=== PATIENT | female | born 1940 | race Caucasian/White ===

== ENCOUNTER 2018-04-17 13:37 | Emergency (ER) | payer MEDICARE, SELFPAY ==
[2018-04-17 14:04] VITALS: PULSE 96; RESP 22; O2SAT 99
== END 2018-04-17 18:35 | disposition left against medical advice (07) ==
PROVIDERS: Emergency Provider Emergency Medicine; PCP Family Medicine
DX: R10.9 Unspecified abdominal pain (principal)
CPT/HCPCS: 99281

== ENCOUNTER 2018-04-18 09:31 | Observation (INO) | payer MEDICARE, SELFPAY ==
[2018-04-18] VITALS (14 sets, daily range): BP systolic 100–132; BP diastolic 41–58; PULSE 81–96; RESP 14–26; TEMP 36.4–36.9; O2SAT 93–100; BMI 39.6
--- NOTE | 2018-04-18 09:55 | ED.CHESTPAIN ---
HPI - Chest Pain General Chief Complaint: Chest Pain Stated Complaint: Abdominal Pain Time Seen by Provider: 04/18/18 09:46 Source: patient and EMS Mode of arrival: EMS Limitations: no limitations History of Present Illness HPI narrative: Patient is a 77-year-old female who presents with generalized weakness and chest pain. She said that she has been having chest pain off and on for the past couple of weeks this morning it was worse more on the right side. She is having some epigastric and right upper quadrant pain as well. She overall feels weak and tired. She is a COPD patient on chronic O2. She is noting that she needing a little bit more lately. She denies any bloody bowel movements dizziness lightheadedness heart palpitations. She has some shortness of breath with exertion. MD complaint: chest pain Onset (ago): month(s) Duration: constant Related Data Home Medications Medication Instructions Recorded Confirmed aspirin 81 mg PO DAILY 04/18/18 04/18/18 atorvastatin 80 mg PO DAILY 04/18/18 04/18/18 ferrous sulfate 325 mg PO DAILY 04/18/18 04/18/18 gabapentin 300 mg PO BEDTIME 04/18/18 04/18/18 glimepiride 2 mg PO QAM 04/18/18 04/18/18 metoprolol succinate 25 mg PO DAILY 04/18/18 04/18/18 ranitidine HCl 150 mg PO DAILY 04/18/18 04/18/18 risperidone 2 mg PO BEDTIME 04/18/18 04/18/18 ticagrelor 90 mg PO BID 04/18/18 04/18/18 Allergies Allergy/AdvReac Type Severity Reaction Status Date / Time No Known Drug Allergies Allergy Verified 04/17/18 14:04 Review of Systems Review of Systems All systems reviewed & are unremarkable except as noted in HPI and below Constitutional Denies chills, Reports fatigue, Denies fever(s), Denies frequent falls and Denies increased appetite ENT Ears, Nose, Mouth, and Throat: Denies change in voice, Denies dizziness, Denies neck pain and Denies sore throat Cardiovascular Reports chest pain, Denies irregular heart rhythm, Denies lightheadedness, Denies palpitations and Denies orthopnea Respiratory Reports as per HPI Gastrointestinal Gastrointestinal: Denies abdominal pain, Denies change in bowel habits, Denies diarrhea, Denies nausea and Denies vomiting Musculoskeletal Denies back pain, Denies neck pain and Denies numbness Integumentary/Breasts Denies pruritus, Denies erythema, Denies rash and Denies wounds Neurologic Denies behavioral changes, Denies confusion, Denies dizziness, Denies frequent falls and Denies numbness Psychiatric Denies behavioral changes and Denies confusion Endocrine Reports fatigue and Denies palpitations Hematologic/Lymphatic Denies easy bleeding and Denies easy bruising FOR[facility] Medical History COPD (chronic obstructive pulmonary disease) (Acute) Chronic respiratory failure (Acute) Social History household members: spouse Smoking Status: Former smoker alcohol intake: current Exam Initial Vital Signs Initial Vital Signs: Vital Signs Temperature 97.6 F 04/18/18 09:41 Pulse Rate 95 H 04/18/18 09:41 Respiratory Rate 26 H 04/18/18 09:41 Blood Pressure 127/53 L 04/18/18 09:41 Pulse Oximetry 100 04/18/18 09:41 GENERAL: Overweight elderly woman in no acute distress appears slightly pale HEENT: Head atraumatic,EOMI, pupils reactive, face symmetric, neck is supple no meningeal sign CARDIOVASCULAR: Regular rate and rhythm without murmurs, rubs or gallops. RESPIRATORY: Breath sounds equal bilaterally, no wheezes rales or rhonchi. ABDOMEN: Soft, slightly distended with right upper quadrant and epigastric discomfort RECTAL: Hemoccult her sleep positive after 2 min no gross blood : No CVA tenderness EXTREMITIES: Normal range of motion, no clubbing or edema. Neurovascularly intact NEUROLOGICAL: Alert and oriented x4.Normal gait and speech. Cranial nerves II through XII grossly intact. Doctor Chiropractic strength equal bilaterally SKIN: Warm, dry, no laceration, no petechiae, no rashes or lesions. Course Orders Ordered: ED Orders 04/18/18 09:36 Complete Blood Count AUTO DIFF Stat Comprehensive Metabolic Panel Stat Lipase Stat Partial Thromboplastin Time Stat Prothrombin Time INR Stat Troponin & CK Cardiac Panel Stat 04/18/18 09:56 CT abdomen pelvis w con Stat XR chest 1V Stat Ferritin Stat Iron Profile (w/ % Saturation) Stat Packed Cells Stat Reticulocyte Count, Percent Stat Type and Screen Stat Aspirin (Aspirin Chew) 81 mg PO DAILY AMYA Atorvastatin Calcium (Lipitor) 80 mg PO DAILY MAYA Ferrous Sulfate (Ferrous Sulfate) 325 mg PO DAILY [facility] Gabapentin (Neurontin) 300 mg PO BEDTIME MAYA Glimepiride (Amaryl) 2 mg PO DAILY MAYA Sodium Chloride (Normal Saline 0.9%) 1,000 mls @ 150 mls/hr IV CONT MAYA Last Infusion: 04/18/18 12:45 Dose: 0 mls/hr Admin: 04/18/18 10:19 Dose: 150 mls/hr Iron Sucrose 200 mg/ Sodium (Chloride) 110 mls @ 220 mls/hr IV PROTOCOL ONE Stop: 04/19/18 18:18 Metoprolol Succinate (Toprol Xl) 25 mg PO DAILY [facility] Non-Formulary Medication (Ticagrelor [Ticagrelor]) 90 mg PO BID MAYA Risperidone (Risperdal) 2 mg PO BEDTIME MAYA Discontinued Medications Aspirin (Aspirin Chew) 324 mg PO NOW ONE Stop: 04/18/18 09:57 Last Admin: 04/18/18 10:18 Dose: 324 mg Vital Signs - 8 hr 04/18/18 11:16 04/18/18 12:17 04/18/18 12:42 Temperature Pulse Rate 92 H 96 H 85 Respiratory Rate 19 14 25 H Blood Pressure 112/54 L Blood Pressure [Right Arm] 110/57 L 100/48 L Pulse Oximetry 99 96 99 04/18/18 13:00 04/18/18 14:17 04/18/18 14:36 Temperature 97.9 F 98.0 F 98.4 F Pulse Rate 95 H 82 96 H Respiratory Rate 20 22 20 Blood Pressure 120/52 L 132/56 L 110/52 L Blood Pressure [Right Arm] Pulse Oximetry 99 04/18/18 16:59 04/18/18 17:00 04/18/18 17:16 Temperature 98.2 F 98.2 F 98.3 F Pulse Rate 82 82 84 Respiratory Rate 16 16 16 Blood Pressure 101/49 L 101/49 L 118/50 L Blood Pressure [Right Arm] Pulse Oximetry 100 MDM - Chest Pain Lab Data Attestation: I reviewed the patient's lab results. Result diagrams: 04/18/18 09:36 04/18/18 09:36 Lab Results 04/18/18 04/18/18 04/18/18 Range/Units 09:36 09:36 09:36 WBC 5.6 (4.5-11.0) X10^3/uL RBC 2.56 L (4.0-5.2) X10^6/uL Hgb 5.5 L* (12.0-16.0) g/dL Hct 18.2 L* (36-46) % MCV 70.0 L (80-100) fL MCH 21.3 L (26-34) PG MCHC 30.5 (30-36) % RDW 21.5 H (11.6-14.8) % Plt Count 194 (150-400) X10^3/uL Neut % (Auto) 60.1 (50-75) % Lymph % (Auto) 25.6 (25-40) % [place] % (Auto) 10.3 (3-14) % Eos % (Auto) 3.3 (2-4) % Baso % (Auto) 0.7 (0-2) % Neut # (Auto) 3400 (5236-0490) /uL RBC Morphology Not Reportable Polychromasia 1+ H Hypochromasia 3+ H Anisocytosis 3+ H Microcytosis 3+ H PT 10.9 (10.1-12.7) SECONDS INR 1.0 (0.9-1.3) APTT 27 (26.4-36.2) SECONDS Sodium 143 (137-145) mmol/L Potassium 4.2 (3.4-5.1) mmol/L Chloride 103 (98-107) mmol/L Carbon Dioxide 32 (22-32) mmol/L BUN 15 (7-17) mg/dL Creatinine 0.80 (0.52-1.04) mg/dL Estimated GFR > 60.0 (>60) mL/min BUN/Creatinine Ratio 18.8 (6-22) Glucose 220 H (80-110) mg/dL Calcium 8.5 (8.4-10.2) mg/dL Total Bilirubin 0.8 (0.2-1.3) mg/dL AST 18 (14-36) IU/L ALT 24 (9-52) IU/L Alkaline Phosphatase 80 (38-126) U/L Total Creatine Kinase 33 (30-135) U/L Troponin I 0.066 H (0.01-0.034) ng/mL Total Protein 6.2 L (6.3-8.2) g/dL Albumin 3.5 (3.5-5.0) g/dL Globulin 2.7 (1.7-4.1) g/dL Albumin/Globulin Ratio 1.3 (1.0-2.8) Lipase 207 (23-300) U/L Blood Type Antibody Screen Crossmatch 04/18/18 Range/Units 09:56 WBC (4.5-11.0) X10^3/uL RBC (4.0-5.2) X10^6/uL Hgb (12.0-16.0) g/dL Hct (36-46) % MCV (80-100) fL MCH (26-34) PG MCHC (30-36) % RDW (11.6-14.8) % Plt Count (150-400) X10^3/uL Neut % (Auto) (50-75) % Lymph % (Auto) (25-40) % [place] % (Auto) (3-14) % Eos % (Auto) (2-4) % Baso % (Auto) (0-2) % Neut # (Auto) (9130-6631) /uL RBC Morphology Polychromasia Hypochromasia Anisocytosis Microcytosis PT (10.1-12.7) SECONDS INR (0.9-1.3) APTT (26.4-36.2) SECONDS Sodium (137-145) mmol/L Potassium (3.4-5.1) mmol/L Chloride (98-107) mmol/L Carbon Dioxide (22-32) mmol/L BUN (7-17) mg/dL Creatinine (0.52-1.04) mg/dL Estimated GFR (>60) mL/min BUN/Creatinine Ratio (6-22) Glucose (80-110) mg/dL Calcium (8.4-10.2) mg/dL Total Bilirubin (0.2-1.3) mg/dL AST (14-36) IU/L ALT (9-52) IU/L Alkaline Phosphatase (38-126) U/L Total Creatine Kinase (30-135) U/L Troponin I (0.01-0.034) ng/mL Total Protein (6.3-8.2) g/dL Albumin (3.5-5.0) g/dL Globulin (1.7-4.1) g/dL Albumin/Globulin Ratio (1.0-2.8) Lipase (23-300) U/L Blood Type O Positive Antibody Screen Negative Crossmatch See Detail Imaging Data CT scan - abdomen: Radiologist's impression: [address] [address] [address] Scan Report Signed Patient: AARON STILL MR#: [id number] : 1940 Acct:[id number] Age/Sex: 77 / F Date of Service: 04/18/18 Loc: ED Accession Number: [id number] Procedure: CT abdomen pelvis w con Ordering Provider: Lisa Nielson D.O. PROCEDURE: CT ABDOMEN PELVIS W CON INDICATIONS: RUQ epigastric pain ab bloating TECHNIQUE: After the administration of intravenous contrast, 5 mm thick sections acquired from the diaphragm to the symphysis. 5 mm coronal and sagittal reformats were acquired. For radiation dose reduction, the following was used: automated exposure control, adjustment of mA and/or kV according to patient size. COMPARISON: None. FINDINGS: Image quality: Excellent. ABDOMEN: Lung bases: Lung bases are clear. Heart size is normal. Solid organs: Liver is normal in size and enhancement. Gallbladder is surgically absent. There is trace intrahepatic biliary ductal dilatation which may be secondary to cholecystectomy. Pancreas enhances normally. Spleen is normal in size and enhancement. No adrenal nodules. Kidneys demonstrate normal size and enhancement, without hydronephrosis. There are bilateral low density renal cortical cystic lesions. There are multiple nonobstructing bilateral renal calculi, the largest of which measures 3-4 mm in diameter. No hydroureter or ureterolithiasis. Peritoneum and bowel: Bowel loops demonstrate normal wall thickness and caliber. The appendix is thin walled. No free fluid or air. Nodes and vessels: No retroperitoneal or mesenteric adenopathy by size criteria. Aorta and inferior vena cava are normal in size. There are scattered atheromatous calcifications throughout the aorta and iliac arteries bilaterally. Miscellaneous: No ventral hernias. PELVIS: Genitourinary: Bladder wall thickness is normal. The uterus is nonvisualized and may be surgically absent. Miscellaneous: No inguinal hernias or adenopathy. Bones: No suspicious bony lesions. No vertebral body compression fractures. IMPRESSION: 1. No acute intra-abdominal findings. Normal appendix. 2. Nonobstructing bilateral nephrolithiasis. No hydronephrosis, hydroureter, or ureterolithiasis. Dictated by: Marlene Arora M.D. on 04/18/2018 at 11:18 Approved by: Marlene Arora M.D. on 04/18/2018 at 11:22 Chest x-ray: Radiologist's impression: PROCEDURE: XR CHEST 1V INDICATIONS: chest pain TECHNIQUE: One view of the chest was acquired. COMPARISON: None. FINDINGS: Surgical changes and devices: None. Lungs and pleura: No pleural effusions or pneumothorax. Lungs are clear. Mediastinum: Mediastinal contours appear normal. Heart size is normal. Bones and chest wall: No suspicious bony lesions. Overlying soft tissues appear unremarkable. IMPRESSION: No acute cardiopulmonary findings. ECG Data Attestation: I personally reviewed and interpreted this ECG as follows: Prior ECG tracings: not available for review Interpretation: Sinus rhythm do not agree with computer rate [address] changes PVC noted MDM Narrative Medical decision making narrative: Patient is noted to be anemic significantly. She denies any active rectal bleeding. No prior history of bleeding. She is actually kind of a poor historian. I have called and spoken with Dr. Correia who has accepted patient to observation for blood transfusion and further workup. She at this time remains hemodynamically stable and is likely chronic Discharge Plan Departure Patient Disposition: Admitted as Observation Clinical Impression: Anemia Discharge Date/Time: 04/18/18 12:49 Interventions: ED Discharge Assessment Last Done: 04/18/18 12:42 Admit Date/Time: 04/18/18 12:37 Admit Provider: Colin Correia
--- NOTE | 2018-04-18 09:56 | DI.RAD.S_ITS ---
PROCEDURE: XR CHEST 1V INDICATIONS: chest pain TECHNIQUE: One view of the chest was acquired. COMPARISON: None. FINDINGS: Surgical changes and devices: None. Lungs and pleura: No pleural effusions or pneumothorax. Lungs are clear. Mediastinum: Mediastinal contours appear normal. Heart size is normal. Bones and chest wall: No suspicious bony lesions. Overlying soft tissues appear unremarkable. IMPRESSION: No acute cardiopulmonary findings. Dictated by: Marlene Arora M.D. on 04/18/2018 at 10:09 Approved by: Marlene Arora M.D. on 04/18/2018 at 10:09
[2018-04-18 10:10] LABS: Prothrombin Time 10.9 SECONDS (10.1-12.7)
[2018-04-18 10:13] LABS: PTT Partial Thromboplastin Tim 27 SECONDS (26.4-36.2)
[2018-04-18 10:14] LABS: Add Manual Diff / Slide Review NO; Basophils Percent Auto 0.7 % (0-2); Eosinophils Percent Auto 3.3 % (2-4); Lymphocytes Percent Auto 25.6 % (25-40); Mean Corpuscular HGB Conc 30.5 % (30-36); Mean Corpuscular Hemoglobin 21.3 PG (26-34); Monocytes Percent Auto 10.3 % (3-14); Neutrophils Absolute Auto 3400 /uL (3000-5900); Neutrophils Percent Auto 60.1 % (50-75); Platelet Count 194 X10^3/uL (150-400); Red Blood Cell Count 2.56 X10^6/uL (4.0-5.2); Red Cell Distribution Width 21.5 % (11.6-14.8); White Blood Cell Count 5.6 X10^3/uL (4.5-11.0)
[2018-04-18 10:15] LABS: Alanine Aminotransferase 24 IU/L (9-52); Albumin 3.5 g/dL (3.5-5.0); Albumin Globulin Ratio 1.3 (1.0-2.8); Alkaline Phosphatase 80 U/L (38-126); Aspartate Aminotransferase 18 IU/L (14-36); BUN Creatinine Ratio 18.8 (6-22); Bilirubin Total 0.8 mg/dL (0.2-1.3); Blood Urea Nitrogen 15 mg/dL (7-17); Calcium 8.5 mg/dL (8.4-10.2); Carbon Dioxide 32 mmol/L (22-32); Chloride 103 mmol/L (98-107); Creatine Kinase 33 U/L (30-135); Estimated Glomerular Filt Rate > 60.0 mL/min (>60); Globulin 2.7 g/dL (1.7-4.1); Glucose 220 mg/dL (80-110); HEMOLYSIS < 15 (0-50); Hemoglobin 5.5 g/dL (12.0-16.0); Lipase 207 U/L (23-300); Potassium 4.2 mmol/L (3.4-5.1); Sodium 143 mmol/L (137-145); Total Protein 6.2 g/dL (6.3-8.2)
[2018-04-18 10:16] LABS: Hematocrit 18.2 % (36-46)
[2018-04-18] MEDS: ASPIRIN 81 MG TAB 324 MG PO (10:18)
[2018-04-18] MEDS: SODIUM CHLORIDE 0.9% 1,000 ML 150 ML IV (10:19)
[2018-04-18 10:26] LABS: Troponin I 0.066 ng/mL (0.01-0.034)
[2018-04-18 10:58] LABS: Anisocytosis 3+; Hypochromasia 3+; Polychromasia 1+
[2018-04-18 10:59] LABS: Microcytosis 3+
--- NOTE | 2018-04-18 15:42 | PC.NURSE ---
Patient arrived to unit from ER at 1300, oriented to room and call light. 1st unit of PRBC's infusing as ordered, patient tolerating well. Waiting for Dr. Correia to come and see patient. Keeping NPO at this time, using bedpan for safety. Call light within reach, bed alarm on for safety. at bedside.
[2018-04-18 18:28] LABS: HEMOLYSIS < 15 (0-50); Iron 14 ug/dL (37-170)
[2018-04-18 18:39] LABS: Percent Iron Saturation 3 % (15-50); Total Iron Binding Capacity 439 ug/dL (265-497); Transferrin 346 mg/dL (206-381)
--- NOTE | 2018-04-18 18:47 | P.HP_ITS ---
History of Present Illness Date Patient Seen: 04/18/18 Time Patient Seen: 18:45 Chief complaint: Abdominal Pain Narrative: A very pleasant 77 years of age female presents to the ER complaint of of a midsternal chest pain. Patient notes she has been having this intermittent pain for about 1-2 months. It does not appear to be related to activity. No particular alleviating or exacerbating factor noted. Severity of the pain is only mild severity of 3 to 4/10 at worst. No previous similar symptom prior to the past 1-2 months. 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 2017 Borderline diabetes Morbid obesity Pertinent negatives as follow: No history of hypertension hyperlipidemia TIA or CVA cancer Family & Social History Social History: household members spouse Prior Living Arrangements House Safety & Behavioral: Feels Safe in Current Yes Environment Been Physically Hurt or No Threatened By a Person Suicidal Ideation Description None Tobacco & Substance use: Smoking Status Former smoker alcohol intake current alcohol intake frequency holiday/special occasion Substance Use Type does not use Comment: SOCIAL HISTORY Patient lives with her son and family Patient is a nonsmoker infrequent alcohol consumer SURGICAL HISTORY Patient notes the 3 stents placed in the coronary vessels last year Remote history of hysterectomy and back surgery FAMILY HISTORY Father with cancer with unknown primary Meds Home Medications Medication Instructions Recorded Confirmed Type aspirin 81 mg PO DAILY 04/18/18 04/18/18 History atorvastatin 80 mg PO DAILY 04/18/18 04/18/18 History ferrous sulfate 325 mg PO DAILY 04/18/18 04/18/18 History gabapentin 300 mg PO BEDTIME 04/18/18 04/18/18 History glimepiride 2 mg PO QAM 04/18/18 04/18/18 History metoprolol succinate 25 mg PO DAILY 04/18/18 04/18/18 History ranitidine HCl 150 mg PO DAILY 04/18/18 04/18/18 History risperidone 2 mg PO BEDTIME 04/18/18 04/18/18 History ticagrelor 90 mg PO BID 04/18/18 04/18/18 History Allergies Allergy/AdvReac Type Severity Reaction Status Date / Time No Known Drug Allergies Allergy Verified 04/17/18 14:04 Review of Systems Review of Systems A 10 point system reviewed with patient and was negative except for the symptoms as described. Patient with this midsternal chest pain discomfort. No associated diaphoresis no nausea no radiation of this discomfort to the jaw or the shoulder the back Exam Vital Signs (past 8 hours): - 04/18/18 11:16 04/18/18 12:17 04/18/18 12:42 Temperature Pulse Rate 92 H 96 H 85 Respiratory Rate 19 14 25 H Blood Pressure 112/54 L Blood Pressure [Right Arm] 110/57 L 100/48 L Pulse Oximetry 99 96 99 04/18/18 13:00 04/18/18 14:17 04/18/18 14:36 Temperature 97.9 F 98.0 F 98.4 F Pulse Rate 95 H 82 96 H Respiratory Rate 20 22 20 Blood Pressure 120/52 L 132/56 L 110/52 L Blood Pressure [Right Arm] Pulse Oximetry 99 04/18/18 16:59 04/18/18 17:00 04/18/18 17:16 Temperature 98.2 F 98.2 F 98.3 F Pulse Rate 82 82 84 Respiratory Rate 16 16 16 Blood Pressure 101/49 L 101/49 L 118/50 L Blood Pressure [Right Arm] Pulse Oximetry 100 Oxygen Delivery Method Nasal Cannula Oxygen Flow Rate 1.5 Narrative Exam Narrative: General appearance patient is awake and alert with good hygiene no apparent distress Psychiatric well oriented to time place and person mood is pleasant cooperative affect is appropriate Skin no rashes or lesions nonjaundiced turgor normal Eyes pupils are equal round and reactive to light The ears nose throat hearing grossly intact nose septum to midline no bleeding no oropharyngeal lesions noted Respiratory clear to auscultation with no wheezes no crackles good airflow Cardiovascular regular in rate and rhythm no murmur rubs or gallops PMI nondisplaced pulses +3 to extremities Chest reproducible chest wall tenderness of the same quality and location as the chest pain she has been complaining of over the past 1-2 months Gastrointestinal no epigastric tenderness no tenderness to palpation to any other region of abdomen positive bowel sounds are noted no organomegaly noted Lymphatic system no lymphadenopathy to neck or axilla Musculoskeletal strength is 5/5 clubbing noted range of motion appears normal Neurologic no focal neurologic changes cranial nerves 2-12 grossly intact proprioception intact Objective Labs Result Diagrams: 04/18/18 09:36 04/18/18 09:36 Labs: Laboratory Results - last 24 hr 04/18/18 04/18/18 04/18/18 09:36 09:36 09:36 WBC 5.6 RBC 2.56 L Hgb 5.5 L* Hct 18.2 L* MCV 70.0 L MCH 21.3 L MCHC 30.5 RDW 21.5 H Plt Count 194 Neut % (Auto) 60.1 Lymph % (Auto) 25.6 [place] % (Auto) 10.3 Eos % (Auto) 3.3 Baso % (Auto) 0.7 Neut # (Auto) 3400 RBC Morphology Not Reportable Polychromasia 1+ H Hypochromasia 3+ H Anisocytosis 3+ H Microcytosis 3+ H PT 10.9 INR 1.0 APTT 27 Sodium 143 Potassium 4.2 Chloride 103 Carbon Dioxide 32 BUN 15 Creatinine 0.80 Estimated GFR > 60.0 BUN/Creatinine Ratio 18.8 Glucose 220 H Calcium 8.5 Iron Total Bilirubin 0.8 AST 18 ALT 24 Alkaline Phosphatase 80 Total Creatine Kinase 33 Troponin I 0.066 H Total Protein 6.2 L Albumin 3.5 Globulin 2.7 Albumin/Globulin Ratio 1.3 Lipase 207 Blood Type Antibody Screen Crossmatch 04/18/18 04/18/18 09:56 09:56 WBC RBC Hgb Hct MCV MCH MCHC RDW Plt Count Neut % (Auto) Lymph % (Auto) [place] % (Auto) Eos % (Auto) Baso % (Auto) Neut # (Auto) RBC Morphology Polychromasia Hypochromasia Anisocytosis Microcytosis PT INR APTT Sodium Potassium Chloride Carbon Dioxide BUN Creatinine Estimated GFR BUN/Creatinine Ratio Glucose Calcium Iron 14 L Total Bilirubin AST ALT Alkaline Phosphatase Total Creatine Kinase Troponin I Total Protein Albumin Globulin Albumin/Globulin Ratio Lipase Blood Type O Positive Antibody Screen Negative Crossmatch See Detail Assessment & Plan Plan: Assessment/Plan Narrative: 1. Microcytic anemia Patient with a hemoglobin noted on admission of 5.5 with a low MCV. 2 units of packed RBC blood transfusion underway as ordered by ER physician I have requested for iron studies which include ferritin TIBC and iron level and reticulocyte count to be added to blood work before blood transfusion Along with a low serum iron, If the ferritin is low or the TIBC is greater than 400 the patient has an iron deficiency anemia. If iron deficiency anemia noted will continue with venofer 200 mg IV daily Repeat labs in a.m. 2. Borderline diabetes ADA diet insulin sliding scale as needed hemoglobin A1c pending 3. History of atherosclerotic heart disease with stent placement 2017 Continue cardiac meds except the aspirin and the Brilinta 4. Chest pain On examination patient is noted with focal tenderness in the xiphoid process to palpation. Patient notes this is exactly the pain and quality that she has been experiencing. I reassured the patient that this is not a cardiac related chest pain. This is more specifically a chest wall tenderness. Will trial with tramadol this evening. Time Spent With Patient Time with patient: 25 - 35 minutes (55 min)
[2018-04-18] MEDS: IRON SUCROSE 200 MG in SODIUM CHLORIDE 0.9% 100 ML 220 ML IV (20:05)
[2018-04-18 20:12] LABS: Hemoglobin A1C% w Est Avg Glu 6.5 % (4.0-6.0)
[2018-04-18] MEDS: SENNOSIDES 8.6 MG TABLET 17.2 MG PO (21:32)
[2018-04-18] MEDS: risperiDONE 1 MG TABLET 2 MG PO (21:32)
[2018-04-18] MEDS: DOCUSATE 100 MG CAPSULE PO (21:32)
[2018-04-18] MEDS: GABAPENTIN 300 MG CAPSULE PO (21:32)
[2018-04-19] VITALS (7 sets, daily range): BP systolic 109–140; BP diastolic 45–57; PULSE 78–97; RESP 15–21; TEMP 36.4–36.7; O2SAT 94–98
[2018-04-19] MEDS: SODIUM CHLORIDE 0.9% 1,000 ML 150 ML IV ×2 (03:33→09:04)
[2018-04-19 05:52] LABS: Add Manual Diff / Slide Review NO; Eosinophils Percent Auto 4.1 % (2-4); Hematocrit 24.1 % (36-46); Hemoglobin 7.7 g/dL (12.0-16.0); Lymphocytes Percent Auto 22.9 % (25-40); Mean Corpuscular HGB Conc 32.1 % (30-36); Mean Corpuscular Hemoglobin 24.1 PG (26-34); Mean Corpuscular Volume 75.1 fL (80-100); Monocytes Percent Auto 11.8 % (3-14); Neutrophils Absolute Auto 4100 /uL (3000-5900); Neutrophils Percent Auto 60.2 % (50-75); Platelet Count 175 X10^3/uL (150-400); Red Blood Cell Count 3.21 X10^6/uL (4.0-5.2); Red Cell Distribution Width 22.2 % (11.6-14.8); White Blood Cell Count 6.8 X10^3/uL (4.5-11.0)
[2018-04-19 05:58] LABS: Alanine Aminotransferase 23 IU/L (9-52); Albumin 3.2 g/dL (3.5-5.0); Albumin Globulin Ratio 1.2 (1.0-2.8); Alkaline Phosphatase 69 U/L (38-126); Aspartate Aminotransferase 18 IU/L (14-36); BUN Creatinine Ratio 18.6 (6-22); Bilirubin Total 1.6 mg/dL (0.2-1.3); Blood Urea Nitrogen 13 mg/dL (7-17); Carbon Dioxide 30 mmol/L (22-32); Chloride 108 mmol/L (98-107); Estimated Glomerular Filt Rate > 60.0 mL/min (>60); Globulin 2.6 g/dL (1.7-4.1); Glucose 118 mg/dL (80-110); HEMOLYSIS < 15 (0-50); Potassium 3.7 mmol/L (3.4-5.1); Sodium 144 mmol/L (137-145); Total Protein 5.8 g/dL (6.3-8.2)
--- NOTE | 2018-04-19 07:08 | PC.NURSE ---
Lab called and stated they could not run the retic count that was ordered pre transfusion. Transfusion was administered prior to my shift.
[2018-04-19] MEDS: GLIMEPIRIDE 2 MG TABLET PO (08:10)
[2018-04-19] MEDS: METOPROLOL ER 25 MG TABLET PO (08:11)
[2018-04-19] MEDS: DOCUSATE 100 MG CAPSULE PO (08:11)
[2018-04-19] MEDS: FERROUS SULFATE 325 MG TABLET PO (08:12)
[2018-04-19] MEDS: ATORVASTATIN 20 MG TABLET 80 MG PO (08:12)
[2018-04-19] MEDS: INSULIN ASPART 100 UNIT/ML INSULN PEN SUBCUT ×2 (08:12→11:55)
--- NOTE | 2018-04-19 09:09 | CM.DANOTE ---
DCP: Case received, EMR reviewed and met with patient. Introduced self and role. DCP template completed with information currently available. Patient is a 77 year old female who was admitted yesterday afternoon to the care of the hospitalist team. PCP: Dr. Butterfield. Payer: confirmed: Medicare/[employer]. Patient came to hospital with symptoms of chest/abdominal pain. Was found to be anemic, and was transfused with 2 units of blood. Met with patient, is alert and oriented, pleasant. Lives in [place] with son and [id number]. At this time, patient is on observation status. P:DCP will continue to assess. Patient is hopeful to return home when she is stable. Eveline Schumacher RN/[employer]
[2018-04-19] MEDS: IRON SUCROSE 200 MG in SODIUM CHLORIDE 0.9% 100 ML 220 ML IV (11:52)
--- NOTE | 2018-04-19 13:29 | P.DS_ITS ---
History of Present Illness Date Patient Seen: 04/19/18 Time Patient Seen: 11:24 Chief complaint: Abdominal Pain Narrative: A very pleasant 77 years of age female presents to the ER complaint of of a midsternal chest pain. Patient notes she has been having this intermittent pain for about 1-2 months. It does not appear to be related to activity. No particular alleviating or exacerbating factor noted. Severity of the pain is only mild severity of 3 to 4/10 at worst. No previous similar symptom prior to the past 1-2 months. Discharge Providers Date of admission: 04/18/18 12:37 Primary care physician: Sg Butterfield MD Discharge provider: Colin Correia MD Summary Discharge Diagnosis: 1. Microcytic anemia suspected secondary to slow GI blood loss 2. Symptomatic anemia requiring 2 units packed RBC blood transfusion 3. History of atherosclerotic heart disease with 3 stents placed 2017 4. Mid chest region discomfort appears noncardiac and chest wall related 5. Borderline diabetes stable on discharge 6. Morbid obesity Hospital Course: Patient is a 77 years of age female that presents to the emergency room at [facility] complaining of chest pain. During the initial workup patient is noted to have a hemoglobin of 5.5. MCV is low. Iron studies indicate patient with an iron deficiency anemia state. Patient was given Venofer 200 mg IV on April 18 as well as April 19. Patient's GI blood loss appears to be very slow. Patient was on aspirin as well as Brilinta antiplatelet therapy for history of heart disease. These 2 medications were stopped during hospital course. Patient tolerated the blood transfusion without any problem. Patient tolerated the IV iron infusion as well. As discussed with the patient and family at bedside she can refer back to her primary care physician in [facility]. Her PCP can make arrangement for outpatient evaluation with GI specialist to consider endoscopy. I suspect source of bleed is upper on the basis of history. Patient is to return home without taking the aspirin and the Brilinta medication. I discussed this with the patient and her at bedside on the day of discharge Patient continues her usual other medications including the iron supplementation once daily Status at Discharge Cognitive/behavioral status at discharge: Patient is not awake and alert and smiling in good spirits note parent distress Functional status at discharge: independent ambulation Time Spent with Patient Greater than 30 minutes (40 min to discharge) Exam Vital Signs (past 8 hours): - 04/19/18 08:11 04/19/18 08:24 04/19/18 10:00 Temperature 97.8 F Pulse Rate 97 H 97 H Respiratory Rate 15 Blood Pressure 123/54 L 123/54 L Pulse Oximetry 98 96 04/19/18 11:58 Temperature 97.9 F Pulse Rate 78 Respiratory Rate 15 Blood Pressure 109/45 L Pulse Oximetry 97 Oxygen Delivery Method Nasal Cannula Oxygen Flow Rate 1.5 Narrative Exam Narrative: Physical exam General appearance patient is not awake and alert no apparent distress Respiratory clear to auscultation with good blood flow no wheezes no crackles Cardiovascular regular rate rhythm no murmurs GI soft and benign and nontender good bowel sounds noted Neurologic no focal neurologic changes noted during hospital course cranial nerves 2-12 grossly intact Objective Labs Result Diagrams: 04/19/18 05:03 04/19/18 05:03 Labs: Laboratory Results - last 24 hr 04/18/18 04/18/18 04/18/18 09:36 09:56 09:56 WBC RBC Hgb Hct MCV MCH MCHC RDW Plt Count Neut % (Auto) Lymph % (Auto) Campbell % (Auto) Eos % (Auto) Baso % (Auto) Neut # (Auto) Percent Retic Cancelled Sodium Potassium Chloride Carbon Dioxide BUN Creatinine Estimated GFR BUN/Creatinine Ratio Glucose Hemoglobin A1c 6.5 H Calcium Iron TIBC % Saturation Transferrin Ferritin Total Bilirubin AST ALT Alkaline Phosphatase Total Protein Albumin Globulin Albumin/Globulin Ratio Blood Type O Positive Antibody Screen Negative Crossmatch See Detail 04/18/18 04/18/18 04/19/18 09:56 09:56 05:03 WBC 6.8 RBC 3.21 L Hgb 7.7 L Hct 24.1 L MCV 75.1 L D MCH 24.1 L MCHC 32.1 RDW 22.2 H Plt Count 175 Neut % (Auto) 60.2 Lymph % (Auto) 22.9 L Campbell % (Auto) 11.8 Eos % (Auto) 4.1 H Baso % (Auto) 1.0 Neut # (Auto) 4100 Percent Retic Sodium Potassium Chloride Carbon Dioxide BUN Creatinine Estimated GFR BUN/Creatinine Ratio Glucose Hemoglobin A1c Calcium Iron 14 L TIBC 439 % Saturation 3 L Transferrin 346 Ferritin 3.0 L Total Bilirubin AST ALT Alkaline Phosphatase Total Protein Albumin Globulin Albumin/Globulin Ratio Blood Type Antibody Screen Crossmatch 04/19/18 05:03 WBC RBC Hgb Hct MCV MCH MCHC RDW Plt Count Neut % (Auto) Lymph % (Auto) Campbell % (Auto) Eos % (Auto) Baso % (Auto) Neut # (Auto) Percent Retic Sodium 144 Potassium 3.7 Chloride 108 H Carbon Dioxide 30 BUN 13 Creatinine 0.70 Estimated GFR > 60.0 BUN/Creatinine Ratio 18.6 Glucose 118 H D Hemoglobin A1c Calcium 8.0 L Iron TIBC % Saturation Transferrin Ferritin Total Bilirubin 1.6 H AST 18 ALT 23 Alkaline Phosphatase 69 Total Protein 5.8 L Albumin 3.2 L Globulin 2.6 Albumin/Globulin Ratio 1.2 Blood Type Antibody Screen Crossmatch Discharge Plan Discharge Plan Patient Disposition: Home Provider Discharge Instructions Diet: Diet as Tolerated Activity: S tolerated Skin/Wound/Dressing Care Report to your healthcare provider any signs of infection, such as:: chills, fever, night sweats, increased pain and unusual drainage Discharge Data Primary Care Provider: Sg Butterfield Attending Provider: Colin Correia Admlevon Date/Time: 04/18/18 12:37
--- NOTE | 2018-04-19 14:04 | PC.NURSE ---
Patient tolerated IV iron transfusion well. Denies pain or other complaint, eager to go home today,. IV (x2) dc'd intact. Discharge instructions and home care handouts reviewed with patient and her . They state they will call her PCP's office on friday (after holiday weekend) to arrange for follow up appointment. Patient escorted out by ASSEMBLER CATERPILLAR SPIDER via wheelchair with her home oxygen and discharged to home with her .
== END 2018-04-19 14:04 | disposition home or self-care (01) ==
LOC: ED 12:31 → AC 12:38
PROVIDERS: Admitting Provider Internal Medicine; Emergency Provider Emergency Medicine; PCP Family Medicine; Visit Provider Internal Medicine
DX: D50.9 Iron deficiency anemia, unspecified (principal); R07.9 Chest pain, unspecified; R53.1 Weakness; J44.9 Chronic obstructive pulmonary disease, unspecified; Z99.81 Dependence on supplemental oxygen; Z87.891 Personal history of nicotine dependence; I25.10 Atherosclerotic heart disease of native coronary artery without angina pectoris
CPT/HCPCS: 36415; 36430; 71045; 74177; 80053; 82550; 82553; 82728; 82962; 83036; 83540; 83550; 83690; 84484; 85025; 85610; 85730; 86850; 86900; 86901; 93005; 93010; 93041; 94760; 96360; 96361; 99284; 99285; G0378; P9016; J1756; Q9967

== ENCOUNTER 2022-05-06 11:25 | Day surgery (SDC) | payer MEDICARE, SELFPAY ==
[2022-03-19 08:00] VITALS: BMI 39.6
--- NOTE | 2022-05-06 | PATH_ITS ---
[facility] Accession Number: [id number] . 01 Material submitted: . PART A: colon - TRANSVERSE COLON POLYP PART B: hepatic flexure - HEPATIC FLEXURE POLYP PART C: rectum - RECTAL POLYP . 01 Clinical history: . DX COLONOSCOPY GASTROINTESTINAL HEMORRHAGE, UNSPECIFIED IRON DEFICIENCY ANEMIA SECONDARY TO BLOOD LOSS . 01 Diagnosis: A. Transverse Colon Polyp, Biopsy: Tubulovillous adenoma. Negative for high-grade dysplasia or malignancy. . B. Hepatic Flexure Polyp, Biopsy: Tubular adenoma. . C. Rectal Polyp, Biopsy: Hyperplastic polyp. MRV 05/10/2022 1222 Local . 01 Electronically signed: . Philip Hickman MD, PhD, Pathologist NPI- [id number] . 01 Gross description: . Part A: TRANSVERSE COLON POLYP: Received in formalin are multiple fragment(s) of colón, soft tissue measuring 1.0 x 0.5 x 0.1 cm in aggregate submitted entirely in 1 cassette(s) Part B: HEPATIC FLEXURE POLYP: Received in formalin are 3 fragment(s) of colón, soft tissue measuring 0.7 x 0.5 x 0.3 cm to 0.3 x 0.2 x 0.1 cm submitted entirely in 1 cassette(s) Part C: RECTAL POLYP: Received in formalin is 1 fragment(s) of colón, soft tissue measuring 0.4 x 0.3 x 0.2 cm submitted entirely in 1 cassette(s) /CPE 05/07/2022 0846 Local . 01 Pathologist provided ICD-10: D12.3, K62.1 . 01 CPT . 621797, 360155, 543317 Performed at: 01 [facility] [address] [place] [address] [address] [facility], [place], [place] [id number] MD Meet Rangel MD Phone: [phone]
[2022-05-06 13:23] VITALS: BMI 37.1
[2022-05-06 13:32] VITALS: BP 133/60; PULSE 88; RESP 22; TEMP 36.7; O2SAT 99
[2022-05-06] MEDS: SODIUM CHLORIDE 0.9% 1,000 ML 84 ML IV (13:41)
[2022-05-06 14:04] LABS: COVID19 -Nasal RAPID Negative (Negative)
--- NOTE | 2022-05-06 16:14 | PM.HP.1 ---
History of Present Illness History of Present Illness Date Patient Seen: 05/06/22 Time Patient Seen: 16:14 Chief complaint: DX COLONOSCOPY Narrative: Personal history of colon polyps anemia. I reviewed the recent office note and upper endoscopy report. Patient History Medical History Chronic respiratory failure COPD (chronic obstructive pulmonary disease) Oxygen dependent Family & Social History Social History: household members spouse,family Tobacco & Substance use: Smoking Status Former smoker alcohol intake current alcohol intake frequency holiday/special occasion Substance Use Type does not use Meds Home Medications and Allergies Home Medications Medication Instructions Recorded Confirmed Type atorvastatin 80 mg tablet 80 mg PO DAILY 04/18/18 05/06/22 History ferrous sulfate 325 mg (65 mg 325 mg PO DAILY 04/18/18 05/06/22 History iron) tablet gabapentin 300 mg capsule 300 mg PO BEDTIME 04/18/18 05/06/22 History glimepiride 2 mg tablet 2 mg PO QAM 04/18/18 05/06/22 History risperidone 2 mg tablet 2 mg PO BEDTIME 04/18/18 05/06/22 History aspirin 81 mg capsule 81 mg PO DAILY 05/06/22 05/06/22 History furosemide 20 mg tablet 20 mg PO DAILY 05/06/22 05/06/22 History insulin glargine 100 unit/mL (3 20 unit SUBCUT QAM 05/06/22 05/06/22 History mL) subcutaneous pen (Lantus Solostar U-100 Insulin) omeprazole 20 mg capsule,delayed 20 mg PO DAILY 05/06/22 05/06/22 History release potassium chloride 10 mEq 10 meq PO DAILY 05/06/22 05/06/22 History capsule,extended release Allergies Allergy/AdvReac Type Severity Reaction Status Date / Time No Known Drug Allergies Allergy Verified 05/06/22 13:16 Review of Systems Review of Systems ROS: Yes All systems reviewed with the patient and are negative except as otherwise documented Exam Vital Signs (past 8 hours): - 05/06/22 13:32 05/06/22 13:32 Temperature 98.0 F Pulse Rate 88 Respiratory Rate 22 Blood Pressure 133/60 Pulse Oximetry 99 Oxygen Delivery Method Nasal Cannula Nasal Cannula Oxygen Flow Rate 2 Oxygen Delivery Method Nasal Cannula Oxygen Flow Rate 2 Const General: cooperative HENMT Head: normal to inspection Eyes General: appearance normal, both eyes and all related structures Neck Neck: normal visual inspection Chest Chest: normal inspection of the chest Resp Effort & Inspection: normal respiratory effort Cardio Rate: regular rate GI Inspection: normal to inspection Skin General: no rashes or lesions noted Neuro General: patient alert and patient awake Extrem General: normal to inspection and no pedal edema Psych Appearance: grossly normal Objective Labs Labs: Laboratory Results - last 24 hr 05/06/22 13:25 SARS-CoV-2 (PCR) Negative Assessment & Plan Assessment & Plan narrative: 81-year-old female with a personal history of colon polyps and anemia. Colonoscopy is pursued today Time Spent With Patient Critical Care time: I spent a total of [] minutes of critical care time on this patient's care today; this time is exclusive of procedural time.
[2022-05-06 16:15] VITALS: BP 112/48; PULSE 81; RESP 10; TEMP 36.6; O2SAT 97
--- NOTE | 2022-05-06 16:16 | P.OP.COLON_ITS ---
Operative Date/Time/Diagnoses Date of procedure: 05/06/22 Time of procedure: 16:16 Pre-op diagnosis: Personal history of colon polyps. Recent diagnosis of iron- deficiency anemia Post-op diagnosis: same Procedure & Clinicians Study performed: Colonoscopy with hot snare polypectomy Same procedure as scheduled: Yes Indications: Iron-deficiency anemia and a personal history of colon polyps Surgeon: Eliseo Giraldo Procedure Notes SCOAP/Timeout: Done Procedure in detail: After the risks and benefits were explained, written and verbal informed consent was obtained. The patient was brought into the procedure room and placed into the left lateral decubitus position. Please see nurse bath house attendant notes for sedation details. Digital rectal examination was accomplished. The scope was introduced into the patient and advanced under direct visualization to the cecum as identified by the appendiceal orifice and ileocecal valve. The scope was slowly withdrawn to carefully examine the mucosa for any defects or lesions. Comprehensive imaging was accomplished throughout the rectum including the dentate line. The colon was decompressed, the scope was then removed from the patient who tolerated the procedure well. Pediatric colonoscope Bowel prep adequate Scope withdrawal time: 13 minutes Sedation minutes: 23 Complications: none Impression: There was a large tattoo around the hepatic flexure identified. Just proximal to the tattoo site was an approximately 8-9 mm sessile polyp removed with hot snare. In the transverse colon there were 2 polyps removed with hot snare these ranged in size from 6-8 mm. In the rectum there was a 6 mm sessile polyp removed with hot snare. No additional mucosal pathology was appreciated throughout. I did not appreciate any inflammation AVMs angiodysplasia or mass lesions. Endoscopic diagnosis 1. Multiple colon polyps 2. Grade 1 to grade 2 hemorrhoids (not mentioned above) Post-procedure Plan for aftercare: 1. Await histopathology. 2. Consider capsule endoscopy for further workup of the iron deficiency anemia. Disposition: PACU
--- NOTE | 2022-05-06 16:16 | PM.PREOP ---
Pre-operative Note COVID-19 COVID-19 status: Negative Result date/Date tested (Pos, Neg/Pending): 05/06/22 Criteria for continued procedure: Possibility delay results in more complex future surgery or treatment Interval Note History & Physical reviewed/Exam performed by Physician: Yes Changes to H&P: No ASA Class (for procedural sedation): III
[2022-05-06 16:20] VITALS: BP 114/50; PULSE 79; RESP 15; O2SAT 100
[2022-05-06 16:26] VITALS: BP 113/96; PULSE 87; RESP 24; O2SAT 97
[2022-05-06 16:30] VITALS: BP 127/56; PULSE 76; RESP 25; TEMP 36.2; O2SAT 98
[2022-05-06 16:43] VITALS: BP 116/62; PULSE 75; RESP 24; TEMP 36.6; O2SAT 96
== END 2022-05-06 16:48 | disposition home or self-care (01) ==
PROVIDERS: PCP Internal Medicine; Referring Provider Internal Medicine Gastroenterology; Visit Provider Internal Medicine Gastroenterology
PROC: 0DJD8ZZ Inspection of Lower Intestinal Tract, Via Natural or Artificial Opening Endoscopic (ICD-10-PCS; CPT 45378; principal; 2022-05-06 14:00)
DX: D50.9 Iron deficiency anemia, unspecified (principal); Z86.010 Personal history of colon polyps; J44.9 Chronic obstructive pulmonary disease, unspecified; Z99.81 Dependence on supplemental oxygen; E11.9 Type 2 diabetes mellitus without complications; I25.10 Atherosclerotic heart disease of native coronary artery without angina pectoris; Z79.84 Long term (current) use of oral hypoglycemic drugs; K64.1 Second degree hemorrhoids; D12.3 Benign neoplasm of transverse colon; K62.1 Rectal polyp
CPT/HCPCS: 45385; 82962; 87635; C9803; J2704

== ENCOUNTER 2023-06-09 16:08 | Emergency (ER) | payer MEDICARE, SELFPAY ==
[2023-06-09] VITALS (12 sets, daily range): BP systolic 121–154; BP diastolic 60–70; PULSE 61–76; RESP 11–20; TEMP 35.9; O2SAT 95–99; BMI 39.6; BMI 36.3
--- NOTE | 2023-06-09 16:24 | DI.RAD.S_ITS ---
PROCEDURE: XR CHEST 1V INDICATIONS: chest pain TECHNIQUE: One view of the chest was acquired. COMPARISON: [facility], CR, XR CHEST 1V, 04/18/2018, 10:02. FINDINGS: Surgical changes and devices: None. Lungs and pleura: Lungs are clear. No pleural effusions or pneumothorax. Mediastinum: Mediastinal contours appear normal. Heart size is normal. Bones and chest wall: No suspicious bony lesions. Overlying soft tissues appear unremarkable. IMPRESSION: Portable chest within normal limits for age. Dictated by: Erica Ballard M.D. on 06/09/2023 at 16:51 Approved by: Erica Ballard M.D. on 06/09/2023 at 16:51
[2023-06-09 16:45] LABS: Add Manual Diff / Slide Review NO; Basophils Absolute Auto 100 /uL (0-100); Basophils Percent Auto 1.3 % (0-2); Eosinophils Absolute Auto 200 /uL (0-450); Eosinophils Percent Auto 2.5 % (2-4); Hematocrit 37.7 % (36-46); Hemoglobin 12.7 g/dL (12.0-16.0); Lymphocytes Absolute Auto 1900 /uL (1100-4500); Lymphocytes Percent Auto 27.2 % (25-40); Mean Corpuscular HGB Conc 33.6 % (30-36); Mean Corpuscular Hemoglobin 30.1 PG (26-34); Mean Corpuscular Volume 89.3 fL (80-100); Monocytes Absolute Auto 700 /uL (0-900); Monocytes Percent Auto 10.1 % (3-14); Neutrophils Absolute Auto 4000 /uL (1500-7000); Neutrophils Percent Auto 58.9 % (50-75); Platelet Count 191 X10^3/uL (150-400); Red Blood Cell Count 4.21 X10^6/uL (4.0-5.2); Red Cell Distribution Width 14.9 % (11.6-14.8); White Blood Cell Count 6.8 X10^3/uL (4.5-11.0)
[2023-06-09 16:50] LABS: Prothrombin Time 10.9 SECONDS (10.1-12.7)
[2023-06-09 16:53] LABS: PTT Partial Thromboplastin Tim 28 SECONDS (26-36)
[2023-06-09 16:54] LABS: Alanine Aminotransferase 23 IU/L (<35); Albumin 4.1 g/dL (3.5-5.0); Albumin Globulin Ratio 1.3 (1.0-2.8); Alkaline Phosphatase 74 U/L (38-126); Aspartate Aminotransferase 28 IU/L (14-36); BUN Creatinine Ratio 15.7 (6-22); Bilirubin Total 0.9 mg/dL (0.2-1.3); Blood Urea Nitrogen 17 mg/dL (7-17); Calcium 9.7 mg/dL (8.4-10.2); Carbon Dioxide 34 mmol/L (22-32); Chloride 100 mmol/L (98-107); Creatine Kinase 34 U/L (30-135); Estimated Glomerular Filt Rate 52 mL/min (>60); Globulin 3.2 g/dL (1.7-4.1); Glucose 87 mg/dL (80-110); HEMOLYSIS < 15 (0-50); Lipase 129 U/L (23-300); Magnesium 2.2 mg/dL (1.6-2.3); Potassium 3.7 mmol/L (3.4-5.1); Sodium 139 mmol/L (137-145); Total Protein 7.3 g/dL (6.3-8.2)
[2023-06-09 17:02] LABS: COVID19 -Nasal RAPID Negative (Negative)
[2023-06-09 17:06] LABS: Troponin I < 0.012 ng/mL (0.01-0.034)
--- NOTE | 2023-06-09 17:09 | DI.CT.S_ITS ---
PROCEDURE: CT HEAD/BRAIN WO CON INDICATIONS: AMS TECHNIQUE: Noncontrast 4.5 mm thick angled axial sections acquired from the foramen magnum to the vertex, with coronal and sagittal reformats. For radiation dose reduction, the following was used: automated exposure control, adjustment of mA and/or kV according to patient size. COMPARISON: [facility], MR, MR BRAIN WITHOUT CONTRAST, 09/27/2021, 16:19. FINDINGS: Image quality: Excellent. CSF spaces: Basal cisterns are patent. No extra-axial fluid collections. The ventricles are symmetric in size and shape. Brain: No intracranial bleeds or masses. There is cerebral volume loss for age, with resultant ventricular and sulcal prominence. There are periventricular and deep white matter chronic small vessel ischemic changes. There is intracranial internal carotid artery atherosclerosis. Skull and face: Calvarium and visualized facial bones appear intact, without suspicious lesions. Bilateral lens replacements. Otherwise, the orbits are unremarkable. Sinuses: Visualized sinuses and mastoids are clear. IMPRESSION: 1. No acute intracranial abnormalities. 2. Age-related global volume loss and chronic microvascular ischemic changes. Dictated by: Jaiden Grissom M.D. on 06/09/2023 at 17:57 Approved by: Jaiden Grissom M.D. on 06/09/2023 at 17:59
--- NOTE | 2023-06-09 17:55 | PC.NURSE ---
MULTIPLE KNIFE EDGE TRIMMER OPERATOR note: dileep care on pt., after this database modeler applied a purewick to pt. with daughter and caregiver at bedside.
[2023-06-09] MEDS: SODIUM CHLORIDE 0.9% 1,000 ML 1000 ML IV (18:50)
--- NOTE | 2023-06-09 18:50 | ED_ITS ---
HPI - Weakness <Mayelin Tejada MD - Last Filed: 06/11/23 17:12> General Chief complaint: Weakness Stated complaint: fell t-1/poss uti/disorietation/leg swelling Time Seen by Provider: 06/09/23 16:47 Source: patient and other Mode of arrival: EMS History of Present Illness HPI Narrative: 82-year-old female with history of dementia, COPD on chronic oxygen, diabetes presents from home by private vehicle for generalized weakness. Patient is accompanied by her caregiver who provides the history. The caregiver states that the patient usually has weak legs but is normally able to ambulate with a cane. For the last week she is had to use a walker. Last night the patient was using the restroom when she stumbled, landing on her left knee. They deny head trauma, deny loss of consciousness, denied use of blood thinners. The caregiver is concerned that the patient may have a urinary tract infection causing her lower extremity weakness. Related Data Home Medications Medication Instructions Recorded Confirmed atorvastatin 80 mg tablet 80 mg PO DAILY 04/18/18 05/06/22 ferrous sulfate 325 mg (65 mg 325 mg PO DAILY 04/18/18 05/06/22 iron) tablet gabapentin 300 mg capsule 300 mg PO BEDTIME 04/18/18 05/06/22 glimepiride 2 mg tablet 2 mg PO QAM 04/18/18 05/06/22 risperidone 2 mg tablet 2 mg PO BEDTIME 04/18/18 05/06/22 aspirin 81 mg capsule 81 mg PO DAILY 05/06/22 05/06/22 furosemide 20 mg tablet 20 mg PO DAILY 05/06/22 05/06/22 insulin glargine 100 unit/mL (3 20 unit SUBCUT QAM 05/06/22 05/06/22 mL) subcutaneous pen (Lantus Solostar U-100 Insulin) omeprazole 20 mg capsule,delayed 20 mg PO DAILY 05/06/22 05/06/22 release potassium chloride 10 mEq 10 meq PO DAILY 05/06/22 05/06/22 capsule,extended release Allergies Allergy/AdvReac Type Severity Reaction Status Date / Time No Known Drug Allergies Allergy Verified 05/06/22 13:16 Review of Systems <Mayelin Tejada MD - Last Filed: 06/11/23 17:12> Review of Systems Narrative: Negative except as marked Patient History <Mayelin Tejada MD - Last Filed: 06/11/23 17:12> Medical History Chronic respiratory failure COPD (chronic obstructive pulmonary disease) Oxygen dependent Social History household members: spouse and family Smoking Status: Former smoker alcohol intake: current Smoking Status: Former smoker alcohol intake frequency: holidays/special occasions only Substance Use Type: does not use Exam <Mayelin Tejada MD - Last Filed: 06/11/23 17:12> Initial Vital Signs Initial Vital Signs: Vital Signs Temperature 96.6 F L 06/09/23 16:16 Pulse Rate 76 06/09/23 16:16 Respiratory Rate 20 06/09/23 16:16 Blood Pressure 145/61 H 06/09/23 16:16 Pulse Oximetry 96 06/09/23 16:16 Oxygen Delivery Method Room Air 06/09/23 16:16 Const: Awake, alert, no acute distress, nontoxic appearing, frail Eyes: PERRL, EOMI, conjunctiva normal ENT: Atraumatic, dentition normal, mucous membranes moist Cardiac: regular rate, regular rhythm RESP: unlabored, clear bilaterally, no wheezing GI: Atraumatic, soft, nontender, nondistended, no rebound, no guarding MSK: Atraumatic, full range of motion, pulses equal Skin: Warm, Dry, intact, no rashes Neuro: AO x2, CN II-XII grossly intact, moves all extremities <Milton Jaramillo DO - Last Filed: 06/10/23 01:42> Initial Vital Signs Initial Vital Signs: Vital Signs Temperature 96.6 F L 06/09/23 16:16 Pulse Rate 76 06/09/23 16:16 Respiratory Rate 20 06/09/23 16:16 Blood Pressure 145/61 H 06/09/23 16:16 Pulse Oximetry 96 06/09/23 16:16 Oxygen Delivery Method Room Air 06/09/23 16:16 Course <Mayelin Tejada MD - Last Filed: 06/11/23 17:12> Course Course Narrative: Nontoxic patient presenting for worsening lower extremity weakness. No focal deficit. Mentally at baseline per caregiver. Orders Ordered: Discontinued Medications Sodium Chloride (Normal Saline 0.9%) 1,000 mls @ 1,000 mls/hr IV BOLUS ONE Stop: 06/09/23 19:42 Last Infusion: 06/09/23 20:00 Dose: Infused Documented By: Admin: 06/09/23 18:50 Dose: 1,000 mls/hr Documented By: JOI Reevaluation(s) Reevaluation #1: Laboratory work is reviewed, no acute abnormalities identified. Care of patient is signed out to Dr. Jaramillo pending urinalysis Vital Signs Vital signs: Vital Signs - 8 hr 06/09/23 17:43 06/09/23 18:00 06/09/23 18:30 Pulse Rate 69 63 66 Respiratory Rate 12 11 L Blood Pressure Pulse Oximetry 97 99 99 06/09/23 18:41 06/09/23 18:41 06/09/23 19:00 Pulse Rate 64 63 Respiratory Rate 12 18 Blood Pressure 121/60 Pulse Oximetry 95 97 06/09/23 19:01 06/09/23 19:01 06/09/23 19:30 Pulse Rate 62 Respiratory Rate 16 Blood Pressure 145/63 H 132/60 Pulse Oximetry 98 06/09/23 19:30 06/09/23 20:00 06/09/23 20:00 Pulse Rate 61 62 Respiratory Rate 12 12 Blood Pressure 154/70 H Pulse Oximetry 98 99 06/09/23 20:30 06/09/23 20:30 Pulse Rate 62 Respiratory Rate 15 Blood Pressure 147/67 H Pulse Oximetry 98 <Milton Jaramillo, DO - Last Filed: 06/10/23 01:42> Orders Ordered: Discontinued Medications Sodium Chloride (Normal Saline 0.9%) 1,000 mls @ 1,000 mls/hr IV BOLUS ONE Stop: 06/09/23 19:42 Last Infusion: 06/09/23 20:00 Dose: Infused Documented By: Admin: 06/09/23 18:50 Dose: 1,000 mls/hr Documented By: JOI Vital Signs Vital signs: Vital Signs - 8 hr 06/09/23 17:43 06/09/23 18:00 06/09/23 18:30 Pulse Rate 69 63 66 Respiratory Rate 12 11 L Blood Pressure Pulse Oximetry 97 99 99 06/09/23 18:41 06/09/23 18:41 06/09/23 19:00 Pulse Rate 64 63 Respiratory Rate 12 18 Blood Pressure 121/60 Pulse Oximetry 95 97 06/09/23 19:01 06/09/23 19:01 06/09/23 19:30 Pulse Rate 62 Respiratory Rate 16 Blood Pressure 145/63 H 132/60 Pulse Oximetry 98 06/09/23 19:30 06/09/23 20:00 06/09/23 20:00 Pulse Rate 61 62 Respiratory Rate 12 12 Blood Pressure 154/70 H Pulse Oximetry 98 99 06/09/23 20:30 06/09/23 20:30 Pulse Rate 62 Respiratory Rate 15 Blood Pressure 147/67 H Pulse Oximetry 98 [82] year old patient presents with weakness and concern for UTI Multiple etiologies for patient's symptoms considered including, but not limited to: [Dehydration versus UTI versus other electrolyte abnormality versus cardiac versus other] Prior Charts reviewed in our EMR Primary Historian: patient Labs reviewed and interpreted by myself: No leukocytosis or left shift, no signs of any primary electrolyte abnormality, slight increasing creatinine from baseline 0.7 up to 1.08, troponin less than 0.012, no signs of infection in the urine Imaging reviewed: CT of the head shows no acute process, chest x-ray within normal limits Patient's history and physical exam are reassuring. Multiple diagnoses considered as noted above. She is given fluids and feels significant improvement, ambulatory through the department and at her baseline, no signs of any other acute process that would require a specific or immediate intervention Patient's symptoms improved over duration of stay with above-stated therapies. Findings and discharge diagnosis discussed with patient/family followed by verbalization of understanding Return precautions discussed with patient/family whom verbalize understanding of diagnosis and plan MDM - Weakness <Mayelin Tejada MD - Last Filed: 06/11/23 17:12> Lab Data 06/09/23 16:23 06/09/23 16:23 Labs: Lab Results 06/09/23 06/09/23 Range/Units 16:23 20:05 WBC 6.8 (4.5-11.0) X10^3/uL RBC 4.21 (4.0-5.2) X10^6/uL Hgb 12.7 (12.0-16.0) g/dL Hct 37.7 (36-46) % MCV 89.3 (80-100) fL MCH 30.1 (26-34) PG MCHC 33.6 (30-36) % RDW 14.9 H (11.6-14.8) % Plt Count 191 (150-400) X10^3/uL Neut % (Auto) 58.9 (50-75) % Lymph % (Auto) 27.2 (25-40) % [place] % (Auto) 10.1 (3-14) % Eos % (Auto) 2.5 (2-4) % Baso % (Auto) 1.3 (0-2) % Neut # (Auto) 4000 (5358-7549) /uL Lymph # (Auto) 1900 (5838-8432) /uL [place] # (Auto) 700 (0-900) /uL Eos # (Auto) 200 (0-450) /uL Baso # (Auto) 100 (0-100) /uL PT 10.9 (10.1-12.7) SECONDS INR 1.0 (0.9-1.3) APTT 28 (26-36) SECONDS Sodium 139 (137-145) mmol/L Potassium 3.7 (3.4-5.1) mmol/L Chloride 100 (98-107) mmol/L Carbon Dioxide 34 H (22-32) mmol/L BUN 17 (7-17) mg/dL Creatinine 1.08 H (0.52-1.04) mg/dL Estimated GFR 52 L (>60) mL/min BUN/Creatinine Ratio 15.7 (6-22) Glucose 87 (80-110) mg/dL Calcium 9.7 (8.4-10.2) mg/dL Magnesium 2.2 (1.6-2.3) mg/dL Total Bilirubin 0.9 (0.2-1.3) mg/dL AST 28 (14-36) IU/L ALT 23 (<35) IU/L Alkaline Phosphatase 74 (38-126) U/L Total Creatine Kinase 34 (30-135) U/L Troponin I < 0.012 (0.01-0.034) ng/mL Total Protein 7.3 (6.3-8.2) g/dL Albumin 4.1 (3.5-5.0) g/dL Globulin 3.2 (1.7-4.1) g/dL Albumin/Globulin Ratio 1.3 (1.0-2.8) Lipase 129 (23-300) U/L Urine Color Yellow Urine Appearance Clear Urine pH 6.5 (4.5-8.0) Ur Specific [place] 1.010 (1.000-1.035) Urine Protein Negative (Negative) Urine Glucose (UA) Negative (Negative) g/dL Urine Ketones Negative (NEGATIVE) Urine Occult Blood Negative (Negative) Urine Nitrate Negative (Negative) Urine Bilirubin Negative (NEGATIVE) Urine Urobilinogen 0.2 (0.2) E.U./dL Ur Leukocyte Esterase Negative (NEGATIVE) Urine RBC None seen (0-5/HPF) Urine WBC None seen (0-5/HPF) Ur Squamous Epith Cells None seen (0-5/HPF) Urine Bacteria None seen (None) Ur Culture Indicated? Cult not indicated SARS-CoV-2 (PCR) Negative (Negative) <Milton Jaramillo DO - Last Filed: 06/10/23 01:42> Lab Data Labs: Lab Results 06/09/23 06/09/23 Range/Units 16:23 20:05 WBC 6.8 (4.5-11.0) X10^3/uL RBC 4.21 (4.0-5.2) X10^6/uL Hgb 12.7 (12.0-16.0) g/dL Hct 37.7 (36-46) % MCV 89.3 (80-100) fL MCH 30.1 (26-34) PG MCHC 33.6 (30-36) % RDW 14.9 H (11.6-14.8) % Plt Count 191 (150-400) X10^3/uL Neut % (Auto) 58.9 (50-75) % Lymph % (Auto) 27.2 (25-40) % [place] % (Auto) 10.1 (3-14) % Eos % (Auto) 2.5 (2-4) % Baso % (Auto) 1.3 (0-2) % Neut # (Auto) 4000 (8119-2722) /uL Lymph # (Auto) 1900 (0882-7791) /uL [place] # (Auto) 700 (0-900) /uL Eos # (Auto) 200 (0-450) /uL Baso # (Auto) 100 (0-100) /uL PT 10.9 (10.1-12.7) SECONDS INR 1.0 (0.9-1.3) APTT 28 (26-36) SECONDS Sodium 139 (137-145) mmol/L Potassium 3.7 (3.4-5.1) mmol/L Chloride 100 (98-107) mmol/L Carbon Dioxide 34 H (22-32) mmol/L BUN 17 (7-17) mg/dL Creatinine 1.08 H (0.52-1.04) mg/dL Estimated GFR 52 L (>60) mL/min BUN/Creatinine Ratio 15.7 (6-22) Glucose 87 (80-110) mg/dL Calcium 9.7 (8.4-10.2) mg/dL Magnesium 2.2 (1.6-2.3) mg/dL Total Bilirubin 0.9 (0.2-1.3) mg/dL AST 28 (14-36) IU/L ALT 23 (<35) IU/L Alkaline Phosphatase 74 (38-126) U/L Total Creatine Kinase 34 (30-135) U/L Troponin I < 0.012 (0.01-0.034) ng/mL Total Protein 7.3 (6.3-8.2) g/dL Albumin 4.1 (3.5-5.0) g/dL Globulin 3.2 (1.7-4.1) g/dL Albumin/Globulin Ratio 1.3 (1.0-2.8) Lipase 129 (23-300) U/L Urine Color Yellow Urine Appearance Clear Urine pH 6.5 (4.5-8.0) Ur Specific [place] 1.010 (1.000-1.035) Urine Protein Negative (Negative) Urine Glucose (UA) Negative (Negative) g/dL Urine Ketones Negative (NEGATIVE) Urine Occult Blood Negative (Negative) Urine Nitrate Negative (Negative) Urine Bilirubin Negative (NEGATIVE) Urine Urobilinogen 0.2 (0.2) E.U./dL Ur Leukocyte Esterase Negative (NEGATIVE) Urine RBC None seen (0-5/HPF) Urine WBC None seen (0-5/HPF) Ur Squamous Epith Cells None seen (0-5/HPF) Urine Bacteria None seen (None) Ur Culture Indicated? Cult not indicated SARS-CoV-2 (PCR) Negative (Negative) Discharge Plan Departure Patient Disposition: Home Clinical Impression: Acute dehydration, Weakness Instructions: DI for Dehydration -- Adult, DI for Muscle Weakness Activity Restrictions/Additional Instructions: *You have been diagnosed with [mild dehydration and leg weakness. As we discussed the history and physical exam are reassuring there is no evidence of a urinary tract infection but there are elements that would suggest dehydration which has been addressed by fluids.] *What to do: *Please continue to take your regular medications as directed. [ ] New medication prescriptions sent to your pharmacy: [ ] [ ] New medication written as a paper prescription [ ] No new medications given *Please follow up with your primary care provider in 2-3 days, call for an appointment. Let them know you were seen in the Emergency Department and that we ask that you be seen in follow up. We will electronically transmit a record of today's note if your PCP is in our system *If you do not have a primary care provider please contact the [facility] Resource line at [phone]. They will ask some questions about your medical history and help get you set up with a doctor in the community. *Return to Emergency Department if you should have any new, worsening or concerning symptoms, such as [fever greater than 101 F, shaking chills, worsening pain, persistent vomiting or other bothersome symptoms] Prescriptions: No Action atorvastatin 80 mg Tablet 80 mg PO DAILY glimepiride 2 mg Tablet 2 mg PO QAM risperidone 2 mg Tablet 2 mg PO BEDTIME ferrous sulfate 325 mg (65 mg iron) Tablet 325 mg PO DAILY gabapentin 300 mg Capsule 300 mg PO BEDTIME omeprazole 20 mg Capsule,Delayed Release(Dr/Ec) 20 mg PO DAILY potassium chloride 10 mEq Capsule, Extended Release 10 meq PO DAILY furosemide 20 mg Tablet 20 mg PO DAILY insulin glargine [Lantus Solostar U-100 Insulin] 100 unit/mL (3 mL) Insulin Pen 20 unit SUBCUT QAM aspirin 81 mg Capsule 81 mg PO DAILY Referrals: Rehan Amaya MD [Primary Care Provider] - Stand Alone Forms: Patient Portal/API
[2023-06-09 20:20] LABS: Appearance Urine UA CLEAR; Bilirubin Urine UA NEGATIVE (NEGATIVE); Color Urine UA YELLOW; Glucose Urine UA NEGATIVE (Negative); Ketones Urine UA NEGATIVE (NEGATIVE); Leukocyte Esterase Urine UA NEGATIVE (NEGATIVE); Nitrite Urine UA NEGATIVE (Negative); Occult Blood Urine UA NEGATIVE (Negative); Protein Urine UA NEGATIVE (Negative); Urobilinogen Urine UA 0.2 E.U./dL (0.2)
[2023-06-09 20:23] LABS: pH Urine UA 6.5 (4.5-8.0)
[2023-06-09 20:30] LABS: Bacteria Urine None Seen; Culture Indicated Urine Cult Not Indicated; RBC Urine None Seen (0-5/HPF); Squamous Epithelial Cell Urine None Seen (0-5/HPF); WBC Urine None Seen (0-5/HPF)
--- NOTE | 2023-06-09 21:02 | PC.NURSE ---
Ambulated with transfer chair without falling or difficulty.
== END 2023-06-09 21:16 | disposition home or self-care (01) ==
PROVIDERS: Emergency Medicine; Emergency Provider Emergency Medicine; PCP Internal Medicine
DX: E86.0 Dehydration (principal); R53.1 Weakness; R07.9 Chest pain, unspecified; R41.82 Altered mental status, unspecified; Z79.899 Other long term (current) drug therapy; Z20.822 Contact with and (suspected) exposure to COVID-19
CPT/HCPCS: 36415; 70450; 71045; 80053; 81001; 82550; 83690; 83735; 84484; 85025; 85610; 85730; 87635; 96360; 99284; C9803